=== PATIENT | male | born 1930 | race Caucasian/White ===

== ENCOUNTER 2016-06-14 10:05 | Emergency (ER) | payer OTHER, BC ==
[2016-06-14 10:21] VITALS: BP 150/52; RESP 18; TEMP 95
--- NOTE | 2016-06-14 11:24 | UCPHY ---
H & P Time Seen by Provider: 06/14/16 10:36 Patient Type: Established HPI/ROS: CHIEF COMPLAINT: Finger injury yesterday HISTORY OF PRESENT ILLNESS: stable 86-year-old male was trying to go out the door yesterday with a load of food in his hand. He went to close the door he got his right middle finger caught in the door and crushed. He notes he was pretty heavy door as he is in 1 of the older [place]. It really did not bleed but it became rather ecchymotic. He had slept very poorly last night despite Vicodin 1 p.o. with 1 Tylenol. He notes the Vicodin was rather hold. REVIEW OF SYSTEMS: Constitutional - no fevers or chills Musculoskeletal - no joint or muscle pain. Integument - Mother is break the skin he did not have any bleeding from the tip. He notes the tip was moving more painful than the dorsum at the nail itself. Neurological - no numbness, tingling, or paresthesias. Smoking Status: Former smoker Physical Exam: General Appearance: Alert, no distress. Afebrile. Extremities: There is a moderate amount of ecchymosis present to the tip of the finger at the pad of the digit as well as the middle phalanx of the middle finger on the right. There is a small wound however I do not see any bleeding from it on the radial side of the tip of the finger on the side. There is approximately 50% ecchymosis present underneath the nail but the nail is intact there is no free blood coming out of the nail. Essentially wound is closed. Neurological: NV intact. Skin: Skin is intact. Warm and dry, no rashes. no lymphangitis. . Constitutional: Initial Vital Signs Temperature (C) 35 C L 06/14/16 10:19 Heart Rate 55 L 06/14/16 10:19 Respiratory Rate 18 06/14/16 10:19 Blood Pressure 150/52 H 06/14/16 10:19 O2 Sat (%) 96 06/14/16 10:19 O2 Delivery Mode Room Air Allergies/Adverse Reactions: Idnuagt-Zlg-Vmh Reductase Inhibitor Allergy (Unknown, Verified 03/22/16 14:56) Home Medications: Medication Instructions Recorded Cholecalciferol Vit D3 [Vitamin D3 1,000 mg PO HS 08/02/12 (*)] Aspirin [Aspirin 81mg (*)] 81 mg PO DAILY 09/17/13 [place]-3 Fatty Acids [Fish Oil 1000 1,000 mg PO DAILY 09/17/13 mg (*)] Torsemide 40 mg PO DAILY 03/26/15 DULoxetine [Cymbalta 60 MG (*)] 60 mg PO HS 07/20/15 traZODone [traZODONE 50MG (*)] 50 mg PO HS 07/20/15 Carvedilol [Coreg] 6.25 mg PO BID 11/06/15 Sacubitril/Valsartan 24/26Mg 1 tab PO BID 11/06/15 [Entresto 24 mg/26 mg (RX)] Lorazepam [Ativan] 1 mg PO BID 12/20/15 Melatonin [Melatonin 1 mg] 0.5 mg PO DAILY@18 12/20/15 Acetaminophen [Tylenol ES 500 mg 1,000 mg PO TID PRN #0 tab 12/23/15 (*)] Allopurinol [Allopurinol 100 MG 100 mg PO DAILY #30 tab 12/23/15 (*)] Potassium Cl [Klor-Con 20 meq (*)] 20 meq PO DAILY #0 tab 12/23/15 Spironolactone [Aldactone 25 MG 12.5 mg PO DAILY #30 tab 12/23/15 (*)] Tramadol HCl 03/22/16 Docusate Sodium [Colace 100 MG (*)] 100 mg PO BID #10 cap 06/14/16 Oxycodone HCl 5 mg PO Q6H PRN #10 capsule 06/14/16 Medical Decision Making Procedures: Digital block performed utilizing sterile technique [with 1% lidocaine] without epinephrine. Patient tolerated the procedure well. Nail trephination was successfully completed with [id number] amount of bloody fluid draining. We utilized the thermal cautery for this. Tolerated well. Differential Diagnosis: The differential diagnosis includes but is not limited to: Fracture, Sprain, Strain, Dislocation, Nerve injury Departure - Departure Disposition: Home, Routine, Self-Care Clinical Impression: Fracture of distal phalanx of finger of right hand Subungual hematoma of finger of right hand Qualifiers: Encounter type: initial encounter Qualified Code(s): S60.10XA - Contusion of unspecified finger with damage to nail, initial encounter Condition: Good Instructions: Finger Fracture (ED) Additional Instructions: Elevate the hand So the digit 3 times daily for 3 days Keep the area covered so as to protect as well as get any of the drainage or blood coming from the site of the nail draining. Throughout the Vicodin. Substitute the oxycodone. Referrals: Yanely Kelly G[employer] PROGRAMER [Primary Care Provider] - As per Instructions Prescriptions: Docusate Sodium [Colace 100 MG (*)] 100 mg PO BID #10 cap Oxycodone HCl 5 mg PO Q6H PRN #10 capsule PRN Reason: pain - PQRS PQRS Measurement: 134: Depression screening and followup, PRIME MD-PHQ2 (12 years and older) Over the last 2 weeks, how often have you been bothered by any of the following problems? 1. Feeling down, depressed, or hopeless? 2. Little interest or pleasure in doing things? [Patient answered no to both 1 and 2] [Patient answered yes to at least 1, referred to PCP for further evaluation.] [Not done because] [altered mental status] [patient refused] [critically ill]. 130: Documentation of medications. [Reviewed all patient medications, doses, route and frequency.] [Unable to obtain meds due to] [critical illness] [altered mental status] [ patient did not know]. 226: Do you smoke? [Yes, counseled to stop.] [No.] 47: 65 and older: Advanced care planning. Patient designates surrogate decision maker as [parent] [spouse] [ ]. [Patient refused.] [Patient has advanced directive.] 51: 18 years old and older with diagnosis of COPD, spirometry performance. [Spirometry not performed; equipment not available.] [Patient has no history of COPD] 52: 18 years old and older with COPD and symptoms of COPD or FEV1<60% predicted prescribed a B Agonist. [Spirometry not performed; equipment not available.] [Patient has no history of COPD]
[2016-06-14 13:16] VITALS: PULSE 65; O2SAT 95
== END 2016-06-14 12:40 | disposition home or self-care (01) ==
LOC: CED 10:05
DX: S62.662A Nondisplaced fracture of distal phalanx of right middle finger, initial encounter for closed fracture (principal); S60.10XA Contusion of unspecified finger with damage to nail, initial encounter; W23.0XXA Caught, crushed, jammed, or pinched between moving objects, initial encounter
CPT/HCPCS: 73140; G0463; 11740-PO; 99214-PO

== ENCOUNTER 2016-09-12 12:01 | Observation (INO) | payer OTHER, BC ==
--- NOTE | 2016-09-12 12:32 | CPEKG ---
Heart Rate: 60 RR Interval: 1000 P-R Interval: 218 QRSD Interval: 142 QT Interval: 432 QTC Interval: 432 P [place]: 0 QRS [place]: 232 T [place]: 57 EKG Severity - ABNORMAL ECG - EKG Impression: VENTRICULAR-PACED RHYTHM Electronically Signed By: Bethel Ahumada 13-Sep-2016 11:24:45
--- NOTE | 2016-09-12 12:32 | EDPHY ---
H & P Stated Complaint: nausea, weak, fatigue, x 3 days Time Seen by Provider: 09/12/16 12:10 HPI/ROS: CHIEF COMPLAINT: Weakness HISTORY OF PRESENT ILLNESS: This is an 86-year-old male with history of atrial fibrillation, congestive heart failure, status post AICD implant, coronary artery disease, status post stents in 2012 presenting with complaints of profound weakness for the last week. Some nausea but no vomiting. Patient denies a fever, denies chest pain, has some shortness of breath with exertion but thinks it is just simply how weak he is feeling, denies increasing peripheral edema, denies orthopnea. Reports no changes in his stools, no black or dark colored stools. Patient does state that he is watching a cat who is fed raw chicken and so he has been handling raw chicken for the last several days. His family is concerned that he may have salmonella. On arrival to the emergency department he had a low-grade temperature but had not noticed a fever before. Again no complaints of vomiting or diarrhea. No rash. No recent falls. No fever, chills, chest pain, palpitations, vomiting, diarrhea, urinary complaints, headache, lightheadedness. REVIEW OF SYSTEMS: Aside from elements discussed in the HPI, a comprehensive 10-point review of systems was reviewed and is negative. PAST MEDICAL HISTORY: Atrial fibrillation, myocardial infarction, congestive heart failure, hyperlipidemia, ischemic cardiomyopathy, CABG, AICD/pacemaker. Patient is on Pradaxa. SOCIAL HISTORY: Denies smoking. Lives alone but family is close by. VITAL SIGNS Reviewed by me. GENERAL: Well-developed, well-nourished, seems out of breath with simple movements. HEENT: Atraumatic. Eyes: No icterus, no injection. Mouth: Slightly pale mucous membranes. No erythema or lesions. Neck: supple with no adenopathy. LUNGS: Clear to auscultation bilaterally, no wheezes, rhonchi or rales. CARDIAC: Regular, diastolic and systolic murmurs. ABDOMEN: Soft, nontender, nondistended, bowel sounds normal. BACK: No CVA tenderness. EXTREMITIES: No trauma. Trace pretibial edema. No deformities. NEURO: Alert and oriented, grossly nonfocal. SKIN: Warm and dry, no rash. PSYCHIATRIC: Normal mentation, no agitation. - Personal History Current Tetanus Diphtheria and Acellular Pertussis (TDAP): Yes Tetanus Vaccine Date: within 10 yrs - Medical/Surgical History Hx Asthma: No Hx Chronic Respiratory Disease: No Hx Diabetes: No Hx Cardiac Disease: Yes Hx Renal Disease: Yes Hx Cirrhosis: No Hx Alcoholism: No Hx HIV/AIDS: No Hx Splenectomy or Spleen Trauma: No Other PMH: HX: [place] (1982), OSTEOARTHRITIS, SLEEP APNEA WITH CPAP, AFIB ,BPH, CHF , CAD, HYPERLIPIDEMIA, HTN, ISCHEMIC CARDIOMYOPATHY, RIGHT TOTAL KNEE, CORONARY STENT PLACEMENT (2006) & (2012), CORONARY ARTERY BYPASS GRAFT (1996), AICD/pacer - Social History Smoking Status: Former smoker Constitutional: Initial Vital Signs Temperature (C) 37.7 C 09/12/16 12:14 Heart Rate 58 L 09/12/16 12:14 Respiratory Rate 16 09/12/16 12:14 Blood Pressure 125/56 H 09/12/16 12:14 O2 Sat (%) 97 09/12/16 12:14 O2 Delivery Mode Room Air Allergies/Adverse Reactions: Fyjhvtx-Ohe-Pbm Reductase Inhibitor Allergy (Unknown, Verified 03/22/16 14:56) Home Medications: Medication Instructions Recorded Acetaminophen [Tylenol ES 500 mg 1,000 mg PO DAILY 09/12/16 (*)] Allopurinol [Allopurinol 300 MG 300 mg PO HS 09/12/16 (RX)] Aspirin [Aspirin 81mg (*)] 81 mg PO DAILY 09/12/16 Carvedilol [Coreg (*)] 6.25 mg PO BID 09/12/16 Cholecalciferol Vit D3 [Vitamin D3 1,000 units PO HS 09/12/16 (*)] DULoxetine [Cymbalta 60 MG (*)] 60 mg PO DAILY 09/12/16 Dabigatran Etexilate Mesylate 75 mg PO BID 09/12/16 [Pradaxa] Digoxin [Lanoxin 125 mcg (RX)] 125 mcg PO DAILY 09/12/16 Gabapentin [Neurontin 100 MG (*)] 100 mg PO DAILY 09/12/16 Gabapentin [Neurontin 100 MG (*)] 200 mg PO HS 09/12/16 LORazepam [Ativan (*)] 1 mg PO HS 09/12/16 Melatonin [Melatonin 5 mg] 5 mg PO DAILY@1900 09/12/16 [place]-3 Fatty Acids [Fish Oil 1000 1,000 mg PO DAILY 09/12/16 mg (*)] Sacubitril/Valsartan 24/26Mg 1 ea PO BID 09/12/16 [Entresto 24 mg/26 mg (RX)] Spironolactone [Aldactone 25 MG 12.5 mg PO DAILY 09/12/16 (*)] Torsemide [Demadex] 60 mg PO DAILY10 09/12/16 traZODone [traZODONE 50MG (*)] 50 mg PO HS 09/12/16 Medical Decision Making - Diagnostics EKG Interpretation: 12-LEAD EKG: Please see the full report in [facility]. My interpretation: Ventricularly paced rhythm at a rate of 60. Imaging Results: Xray: [chest x-ray] was obtained. I viewed the images myself on the PACS system. My interpretation of the images is: Cardiomegaly, some fluid overload noted. The radiology interpretation is: Agrees. I discussed the results with the patient. Imaging: I viewed and interpreted images myself ED Course/Re-evaluation: 86-year-old male with complex past medical history including hypertension, ischemic cardiomyopathy, myocardial infarction, bypass, stent placement, AICD and pacemaker placement presents with weakness for several days. Patient appears tired on examination and has a low-grade fever. Evaluation demonstrates electrolytes which are largely a baseline with an elevated creatinine, elevated BNP (slightly up from his baseline) negative troponin. Chest x-ray demonstrates no infiltrate. Patient's urinalysis does not indicate infection although there is some yeast present. EKG is nonischemic. On re-evaluation the patient reports that he still continues to feel quite weak. He does not feel safe at home, he lives alone, and feels unsteady. He reports that his gait unsteadiness is chronic but recently he he is concerned that he may fall. Of note, the patient also was concerned regarding potential salmonella as he has been handling raw chicken frequently. Patient's course discussed with the hospitalist service. Patient will be admitted to the PCU for ongoing serial troponins, further evaluation of his congestive heart failure status, potential echocardiogram, and further monitoring for potential occult infection, fevers, or septicemia. Differential Diagnosis: Differential diagnosis of the patient's weakness was considered including but not limited to electrolyte abnormality, anemia, cardiac ischemia, CVA, spinal cord abnormality, and infectious causes. - Data Points Laboratory Results: Laboratory Results 09/12/16 12:40 09/12/16 12:40 Medications Given: Discontinued Medications Allopurinol (Allopurinol) 300 mg PO HS [facility] Stop: 03/11/17 20:59 Last Admin: 09/12/16 20:10 Dose: 300 mg Aspirin (Aspirin) 81 mg PO DAILY [facility] Stop: 03/12/17 08:59 Last Admin: 09/13/16 11:37 Dose: Not Given Carvedilol (Coreg) 6.25 mg PO BIDMEAL [facility] Stop: 03/11/17 18:59 Last Admin: 09/13/16 11:37 Dose: Not Given Dabigatran (Pradaxa) 75 mg PO BID [facility] Stop: 03/11/17 20:59 Last Admin: 09/13/16 11:37 Dose: Not Given Duloxetine HCl (Cymbalta) 60 mg PO DAILY [facility] Stop: 03/12/17 08:59 Last Admin: 09/13/16 11:37 Dose: Not Given Furosemide (Lasix Injection) 40 mg IVP BID@0900,1500 [facility] Stop: 03/11/17 17:29 Last Admin: 09/13/16 15:09 Dose: Not Given Gabapentin (Neurontin) 100 mg PO DAILY [facility] Stop: 03/12/17 08:59 Last Admin: 09/13/16 11:37 Dose: Not Given Gabapentin (Neurontin) 200 mg PO HS [facility] Stop: 03/11/17 20:59 Last Admin: 09/12/16 20:10 Dose: 200 mg Lorazepam (Ativan) 1 mg PO HS [facility] Stop: 03/11/17 20:59 Last Admin: 09/12/16 20:11 Dose: 1 mg Melatonin (Melatonin) 3 mg PO DAILY@1900 [facility] Stop: 03/11/17 18:59 Last Admin: 09/12/16 19:03 Dose: 3 mg Sacubitril/Valsartan (Entresto 24 Mg/26 Mg) 1 ea PO BID [facility] Stop: 03/11/17 20:59 Last Admin: 09/13/16 11:37 Dose: Not Given Spironolactone (Aldactone) 12.5 mg PO DAILY [facility] Stop: 03/12/17 08:59 Last Admin: 09/13/16 11:38 Dose: Not Given Trazodone HCl (Trazodone) 50 mg PO HS PRN PRN Reason: insomnia Stop: 03/11/17 20:59 Last Admin: 09/12/16 22:24 Dose: 50 mg Departure - Departure Disposition: [facility] Inpatient Acute Clinical Impression: Weakness, rule out cardiac cause Condition: Good
[2016-09-12 12:47] LABS: % IMMATURE GRANULYOCYTES 0.5 % (0.0-1.1); ABSOLUTE IMMATURE GRANULOCYTES 0.06 10^3/uL (0.00-0.10); ADD DIFF? NO; ADD MORPH? NO; ADD SCAN? NO; ATYPICAL LYMPHOCYTE FLAG 10 (0-99); FRAGMENT RBC FLAG 20 (0-99); HEMATOCRIT 31.5 % (40.0-51.0); HEMOGLOBIN 10.6 g/dL (13.7-17.5); LEFT SHIFT FLG 10 (0-99); LIPEMIA HEMOLYSIS FLAG 80 (0-99); MEAN CELL HEMOGLOBIN 34.9 pg (27.9-34.1); MEAN CELL HEMOGLOBIN CONCENTR. 33.7 g/dL (32.4-36.7); MEAN CELL VOLUME 103.6 fL (81.5-99.8); MEAN PLATELET VOLUME 11.8 fL (8.7-11.7); PLATELET CLUMPS FLAG 0 (0-99); PLATELET COUNT 115 10^3/uL (150-400); RED BLOOD CELL COUNT 3.04 10^6/uL (4.40-6.38); RED CELL DISTRIBUTION WIDTH 16.3 % (11.5-15.2)
[2016-09-12 13:06] LABS: CREATININE 1.7 mg/dL (0.7-1.3)
[2016-09-12 13:09] LABS: TOTAL PROTEIN 6.2 g/dL (6.3-8.2)
[2016-09-12 13:12] LABS: ALBUMIN 3.8 g/dL (3.5-5.0); BILIRUBIN,TOTAL 1.5 mg/dL (0.1-1.4); BILIRUBIN-CONJUGATED 0.3 mg/dL (0.0-0.5); BILIRUBIN-UNCONJUGATED 1.2 mg/dL (0.0-1.1); CALCIUM 8.8 mg/dL (8.5-10.4); POTASSIUM 4.3 mEq/L (3.5-5.2)
[2016-09-12 13:19] LABS: TROPONIN I 0.026 ng/mL (0-0.034)
[2016-09-12 13:58] LABS: COLOR YELLOW; LEUKOCYTE ESTERASE,URINE NEGATIVE (NEGATIVE); NITRITE,URINE NEGATIVE (NEGATIVE)
[2016-09-12 14:08] LABS: AMORPHOUS TRACE /hpf (NONE-1+); HYALINE CASTS 15-25 /lpf (0-1); MUCUS TRACE /lpf (NONE-1+); RBC,URINE 0-1 /hpf (0-3); WBC,URINE 0-1 /hpf (0-3); YEAST OCCASIONAL /hpf (NONE SEEN)
--- NOTE | 2016-09-12 14:36 | PDGENHP ---
History and Physical - Chief Complaint weakness, nausea - History of Present Illness 86 yo male with h/o CAD and ischemic cardiomyopathy, atrial fibrillation and CKD presents to the [facility] complaining of weakness and shortness of breath over the past 4 days. He reports his weight is up at least 10 lbs. He doesn't follow his daily weights. He can normally walk 4-6 blocks, but over past few days, thinks he couldn't make it 1/4 of a block. He denies orthopnea or PND. He does have some peripheral edema. No CP. No SOB at rest, but +GARCIA as above. No fevers or chills. He has been taking care of a friend's cat and feeds it raw chicken. His daughter thought maybe he has salmonella, but he denies abdominal pain, vomiting or diarrhea. He also reports a h/o alcoholism and was sober for >20 yrs. Recently, he began drinking again, an occasional beer or yakut coffee. He asks if I consider this okay for his health. He is admitted to the hospital for further evaluation of his weakness and SOB. History Information - Allergies/Home Medication List Allergies/Adverse Reactions: Upwmbub-Myg-Fsv Reductase Inhibitor Allergy (Unknown, Verified 03/22/16 14:56) Home Medications: Acetaminophen [Tylenol ES 500 mg (*)] 1,000 mg PO DAILY 09/12/16 [Last Taken 07/26] Allopurinol [Allopurinol 300 MG (RX)] 300 mg PO HS 09/12/16 [Last Taken 09/11/16 ] Aspirin [Aspirin 81mg (*)] 81 mg PO DAILY 09/12/16 [Last Taken 09/12/16] Carvedilol [Coreg (*)] 6.25 mg PO BID 09/12/16 [Last Taken 09/12/16] Cholecalciferol Vit D3 [Vitamin D3 (*)] 1,000 units PO HS 09/12/16 [Last Taken 09/11/16] DULoxetine [Cymbalta 60 MG (*)] 60 mg PO DAILY 09/12/16 [Last Taken 09/12/16] Dabigatran Etexilate Mesylate [Pradaxa] 75 mg PO BID 09/12/16 [Last Taken ] Digoxin [Lanoxin 125 mcg (RX)] 125 mcg PO DAILY 09/12/16 [Last Taken 09/12/16] Gabapentin [Neurontin 100 MG (*)] 100 mg PO DAILY 09/12/16 [Last Taken 09/12/16] Gabapentin [Neurontin 100 MG (*)] 200 mg PO HS 09/12/16 [Last Taken 09/11/16] LORazepam [Ativan (*)] 1 mg PO HS 09/12/16 [Last Taken 09/11/16] Melatonin [Melatonin 5 mg] 5 mg PO DAILY@1900 09/12/16 [Last Taken 09/11/16] [place]-3 Fatty Acids [Fish Oil 1000 mg (*)] 1,000 mg PO DAILY 09/12/16 [Last Taken 09/12/16] Sacubitril/Valsartan 24/26Mg [Entresto 24 mg/26 mg (RX)] 1 ea PO BID 09/12/16 [ Last Taken 09/12/16] Spironolactone [Aldactone 25 MG (*)] 12.5 mg PO DAILY 09/12/16 [Last Taken 09/12] Torsemide [Demadex] 60 mg PO DAILY10 09/12/16 [Last Taken 09/12/16] traZODone [traZODONE 50MG (*)] 50 mg PO HS 09/12/16 [Last Taken 09/11/16] I have personally reviewed and updated: family history, medical history, social history, surgical history - Past Medical History atrial fibrillation, coronary artery disease, CHF, hypertension, hyperlipidemia Additional medical history: OA, CKD- baseline Cr 1.7, Ischemic cardiomyopathy- EF 30-35% by echo 07/2015, CAD with h/o CABG and multiple stents, chronic anemia , FRANCIS - Surgical History Reports: coronary bypass surgery Additional surgical history: CABG 1996, coronary stents 2006, 2012, Rt TKA - Family History Additional family history: Both parents are - Social History Smoking Status: Former smoker Alcohol Use: Occasionally Drug Use: None (h/o alcoholism, just started drinking etoh again, occ beer or yakut whiskey) Additional social history: Lives independently Review of Systems ROS: 10pt was reviewed & negative except for what was stated in HPI & below Physical Exam Temp Pulse Resp BP Pulse Ox 37.1 C 60 18 126/62 H 94 09/12/16 14:00 09/12/16 14:15 09/12/16 14:00 09/12/16 14:15 09/12/16 14:00 Constitutional: no apparent distress Eyes: PERRL Ears, Nose, Mouth, Throat: moist mucous membranes Cardiovascular: regular rate and rhythym, systolic murmur, JVD Respiratory: no respiratory distress, clear to auscultation, reduced air movement Gastrointestinal: normoactive bowel sounds, soft, non-tender abdomen Skin: warm Musculoskeletal: full muscle strength Neurologic: AAOx3 Psychiatric: interacting appropriately Lab Data & Imaging Review 09/12/16 12:40 09/12/16 12:40 WBC 11.77 10^3/uL (3.80-9.50) H 09/12/16 12:40 RBC 3.04 10^6/uL (4.40-6.38) L 09/12/16 12:40 Hgb 10.6 g/dL (13.7-17.5) L 09/12/16 12:40 Hct 31.5 % (40.0-51.0) L 09/12/16 12:40 MCV 103.6 fL (81.5-99.8) H 09/12/16 12:40 MCH 34.9 pg (27.9-34.1) H 09/12/16 12:40 MCHC 33.7 g/dL (32.4-36.7) 09/12/16 12:40 RDW 16.3 % (11.5-15.2) H 09/12/16 12:40 Plt Count 115 10^3/uL (150-400) L 09/12/16 12:40 MPV 11.8 fL (8.7-11.7) H 09/12/16 12:40 Neut % (Auto) 67.6 % (39.3-74.2) 09/12/16 12:40 Lymph % (Auto) 16.5 % (15.0-45.0) 09/12/16 12:40 [place] % (Auto) 13.5 % (4.5-13.0) H 09/12/16 12:40 Eos % (Auto) 1.6 % (0.6-7.6) 09/12/16 12:40 Baso % (Auto) 0.3 % (0.3-1.7) 09/12/16 12:40 Nucleat RBC Rel Count 0.0 % (0.0-0.2) 09/12/16 12:40 Absolute Neuts (auto) 7.96 10^3/uL (1.70-6.50) H 09/12/16 12:40 Absolute Lymphs (auto) 1.94 10^3/uL (1.00-3.00) 09/12/16 12:40 Absolute Monos (auto) 1.59 10^3/uL (0.30-0.80) H 09/12/16 12:40 Absolute Eos (auto) 0.19 10^3/uL (0.03-0.40) 09/12/16 12:40 Absolute Basos (auto) 0.03 10^3/uL (0.02-0.10) 09/12/16 12:40 Absolute Nucleated RBC 0.00 10^3/uL (0-0.01) 09/12/16 12:40 Immature Gran % 0.5 % (0.0-1.1) 09/12/16 12:40 Immature Gran # 0.06 10^3/uL (0.00-0.10) 09/12/16 12:40 Sodium 138 mEq/L (134-144) 09/12/16 12:40 Potassium 4.3 mEq/L (3.5-5.2) 09/12/16 12:40 Chloride 100 mEq/L (97-110) 09/12/16 12:40 Carbon Dioxide 24 mEq/l (22-31) 09/12/16 12:40 Anion Gap 15 mEq/L (8-16) 09/12/16 12:40 BUN 31 mg/dL (7-23) H 09/12/16 12:40 Creatinine 1.7 mg/dL (0.7-1.3) H 09/12/16 12:40 Estimated GFR 39 09/12/16 12:40 Glucose 110 mg/dL (70-100) H 09/12/16 12:40 Calcium 8.8 mg/dL (8.5-10.4) 09/12/16 12:40 Total Bilirubin 1.5 mg/dL (0.1-1.4) H 09/12/16 12:40 Conjugated Bilirubin 0.3 mg/dL (0.0-0.5) 09/12/16 12:40 Unconjugated Bilirubin 1.2 mg/dL (0.0-1.1) H 09/12/16 12:40 AST 18 IU/L (17-59) 09/12/16 12:40 ALT 29 IU/L (21-72) 09/12/16 12:40 Alkaline Phosphatase 58 IU/L (38-126) 09/12/16 12:40 Troponin I 0.026 ng/mL (0-0.034) 09/12/16 12:40 NT-Pro-B Natriuret Pep 3140 pg/mL (0-450) H 09/12/16 12:40 Total Protein 6.2 g/dL (6.3-8.2) L 09/12/16 12:40 Albumin 3.8 g/dL (3.5-5.0) 09/12/16 12:40 Lipase 77.0 IU/L (23-300) 09/12/16 12:40 Urine Color YELLOW 09/12/16 13:55 Urine Appearance CLEAR 09/12/16 13:55 Urine pH 6.0 (5.0-7.5) 09/12/16 13:55 Ur Specific [place] <= 1.005 (1.002-1.030) 09/12/16 13:55 Urine Protein NEGATIVE (NEGATIVE) 09/12/16 13:55 Urine Ketones NEGATIVE (NEGATIVE) 09/12/16 13:55 Urine Blood NEGATIVE (NEGATIVE) 09/12/16 13:55 Urine Nitrate NEGATIVE (NEGATIVE) 09/12/16 13:55 Urine Bilirubin NEGATIVE (NEGATIVE) 09/12/16 13:55 Urine Urobilinogen 0.2 EU (0.2-1.0) 09/12/16 13:55 Ur Leukocyte Esterase NEGATIVE (NEGATIVE) 09/12/16 13:55 Urine RBC 0-1 /hpf (0-3) 09/12/16 13:55 Urine WBC 0-1 /hpf (0-3) 09/12/16 13:55 Ur Epithelial Cells NONE SEEN /lpf (NONE-1+) 09/12/16 13:55 Amorphous Sediment TRACE /hpf (NONE-1+) 09/12/16 13:55 Hyaline Casts 15-25 /lpf (0-1) H 09/12/16 13:55 Urine Mucus TRACE /lpf (NONE-1+) 09/12/16 13:55 Urine Yeast OCCASIONAL /hpf (NONE SEEN) H 09/12/16 13:55 Urine Glucose NEGATIVE (NEGATIVE) 09/12/16 13:55 Visualized and Interpreted Chest x-ray results: Yes Chest X-Ray results: no infiltrate, other (mild patchy pulmonary edema) Visualized and Interpreted EKG results: Yes EKG additional interpertation: V paced Assessment & Plan Assessment: Weakness and SOB - suspect mild HF exacerbation though he is fairly well compensated without hypoxemia or respiratory distress. His weight is up >10 lbs , with peripheral edema, JVD, mild volume overload on CXR and SOB/GARCIA. He also has h/o valvular heart disease. Doubt salmonella as was mentioned in ED note. Pt has no diarrhea or abdominal symptoms. His recent use of alcohol may be playing a role in his worsening HF symptoms. -admit for diuresis, IV lasix BID, continue spironolactone -monitor I&O's, daily weights -check echo -check TSH -trend troponin Ischemic cardiomyopathy with bi-V AICD - EF 30-35% per 07/2015 echo. BNP ~3K, though baseline is 2-4K in setting of decreased renal clearance. He appears mildly volume overloaded by exam. -diurese as above -consider cardiology consult in am. Pt is followed by Dr. Carrington Valvular heart disease - h/o MR, AR, and TR. -repeat echo as above CAD with h/o CABG, prior stents - stable, no CP. Will trend trop as above. Cont outpt meds. Atrial fibrillation - In V-paced rhythm. Chads-vasc at least 5. -cont coreg for rate control -cont pradaxa for stroke prevention CKD - Cr at baseline. Follow. Anemia - chronic, ?anemia of CKD vs ACD. No e/o active bleeding. Hgb relatively stable. 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 No w/d symptoms. Encouraged abstinence. Full code Dispo - obs
[2016-09-12] MEDS ORDERED: ONDANSETRON 4 MG/2 ML VIAL IVP PRN (16:29)
[2016-09-12] MEDS ORDERED: ACETAMINOPHEN 325 MG TAB PO PRN (16:29)
[2016-09-12] MEDS ORDERED: ONDANSETRON DISINTEGRATING 4 MG TAB PO PRN (16:29)
[2016-09-12] MEDS: FUROSEMIDE 40 MG/4 ML VIAL IVP SCH (17:33)
[2016-09-12] MEDS ORDERED: traZODone 50 MG TAB PO PRN (18:45)
[2016-09-12] MEDS ORDERED: MELATONIN 3 MG TAB PO SCH (19:00)
[2016-09-12 19:06] LABS: TROPONIN I 0.026 ng/mL (0-0.034)
[2016-09-12] MEDS: DABIGATRAN ETEXILATE MESYL 75 MG CAP PO SCH (20:10)
[2016-09-12] MEDS: SACUBITRIL/VALSARTAN 24/26MG 1 EA TAB PO SCH (20:10)
[2016-09-12] MEDS: CARVEDILOL 6.25 MG TAB PO SCH (20:11)
[2016-09-12] MEDS ORDERED: GABAPENTIN 100 MG CAP PO SCH (21:00)
[2016-09-12] MEDS ORDERED: ALLOPURINOL 300 MG TAB PO SCH (21:00)
[2016-09-12] MEDS ORDERED: LORazepam 1 MG TAB PO SCH (21:00)
[2016-09-12] MEDS ORDERED: traZODone 50 MG TAB PO SCH (21:00)
[2016-09-13 04:01] LABS: % IMMATURE GRANULYOCYTES 0.4 % (0.0-1.1); ABSOLUTE IMMATURE GRANULOCYTES 0.04 10^3/uL (0.00-0.10); ADD DIFF? NO; ADD MORPH? NO; ADD SCAN? NO; ATYPICAL LYMPHOCYTE FLAG 0 (0-99); FRAGMENT RBC FLAG 20 (0-99); HEMATOCRIT 28.5 % (40.0-51.0); HEMOGLOBIN 9.6 g/dL (13.7-17.5); LEFT SHIFT FLG 20 (0-99); LIPEMIA HEMOLYSIS FLAG 80 (0-99); MEAN CELL HEMOGLOBIN 35.4 pg (27.9-34.1); MEAN CELL HEMOGLOBIN CONCENTR. 33.7 g/dL (32.4-36.7); MEAN CELL VOLUME 105.2 fL (81.5-99.8); MEAN PLATELET VOLUME 12.5 fL (8.7-11.7); PLATELET CLUMPS FLAG 0 (0-99); PLATELET COUNT 99 10^3/uL (150-400); RED BLOOD CELL COUNT 2.71 10^6/uL (4.40-6.38); RED CELL DISTRIBUTION WIDTH 16.2 % (11.5-15.2)
[2016-09-13 04:19] LABS: ANION GAP 10 mEq/L (8-16); CALCIUM 8.5 mg/dL (8.5-10.4); CARBON DIOXIDE 26 mEq/l (22-31); CHLORIDE 102 mEq/L (97-110); CREATININE 1.7 mg/dL (0.7-1.3); GLOMERULAR FILTRATION RATE 39; GLUCOSE 140 mg/dL (70-100); SODIUM 138 mEq/L (134-144)
[2016-09-13] MEDS ORDERED: GABAPENTIN 100 MG CAP PO SCH (09:00)
[2016-09-13] MEDS ORDERED: ASPIRIN 81 MG CHEWABLE TAB PO SCH (09:00)
[2016-09-13] MEDS ORDERED: FUROSEMIDE 40 MG/4 ML VIAL IVP SCH (09:00)
[2016-09-13] MEDS ORDERED: DULoxetine 60 MG CAP PO SCH (09:00)
[2016-09-13] MEDS ORDERED: SPIRONOLACTONE 25 MG TAB PO SCH (09:00)
[2016-09-13 11:29] VITALS: BP 102/70; PULSE 57; RESP 14; TEMP 98.8; O2SAT 93
[2016-09-13] MEDS: FUROSEMIDE 40 MG/4 ML VIAL IVP SCH ×2 (11:37→15:09)
[2016-09-13] MEDS: SACUBITRIL/VALSARTAN 24/26MG 1 EA TAB PO SCH (11:37)
[2016-09-13] MEDS: CARVEDILOL 6.25 MG TAB PO SCH (11:37)
[2016-09-13] MEDS: DABIGATRAN ETEXILATE MESYL 75 MG CAP PO SCH (11:37)
--- NOTE | 2016-09-13 13:26 | ECHO ---
[id number] + + [address] : : [place] [address] : : [phone] + + Adult Echocardiographic Report + ---+ :Name: TIFFANIE HAQUE TStudy Date: 09/13/2016 10:38 AM : : Hospital Admission Number: [id number] Location: 213: :: 1930 Gender: Male Height: 68 in : :Age: 86 yrs Race: WH Weight: 194 lb : :Reason For Study: Eval LV Fx : : BSA: 2.0 meters2 : :History: Weakness, Hx of Pacemaker, ICM : + ---+ MMode/2D Measurements \T\ Calculations IVSd: 0.61 cm LVIDd: 5.7 cm FS: 22.8 % MV Diam: 3.5 cm LVPWd: 0.95 cm LVIDs: 4.4 cm EDV(Teich): 162.8 ml ESV(Teich): 89.3 ml EF(Teich): 45.1 % Ao root diam: LVOT diam: 1.9 cm LVLd ap4: 7.9 cm SV(MOD-sp4): 3.4 cm LVOT area: EDV(MOD-sp4): 43.0 ml ACS: 1.5 cm 2.8 cm2 93.0 ml LVLs ap4: 7.5 cm ESV(MOD-sp4): 50.0 ml EF(MOD-sp4): 46.2 % Normal Measurement Values: + + :LVIDd (3.5-5.7cm) IVSd (0.6-1.1cm) LVPWd (0.6-1.1cm) Aortic Root (2.0-3.7cm)Left Atrium (1.5-4.0cm): :LV Vol(d) (76-115ml) LV Vol(s) (29-48ml) Ejec Fraction (50-65%)PV Newton (0.6- 1.2m/s) TV Newton (0.4-1.0m/s) : :MV E Newton (0.8-1.0m/s)MV A Newton (0.3-1.0m/s)LVOT Newton (0.7-1.2m/s) Asc Ao Newton ( 0.9-1.8m/s) : + + Doppler Measurements \T\ Calculations MV E max newton: MV V2 mean: Ao V2 max: LV V1 max: 86.4 cm/sec 64.4 cm/sec 168.9 cm/sec 96.7 cm/sec MV mean P.1 mmHgAo max PG: LV V1 max PG: MV V2 VTI: 32.2 cm 11.4 mmHg 3.7 mmHg MV area (1 diam): FARIDEH(V,D): 1.6 cm2 LV V1 mean P.6 cm2 2.0 mmHg LV V1 mean: MVA(VTI): 1.8 cm2 65.1 cm/sec MV Flow area(1diam): LV V1 VTI: 9.6 cm2 20.8 cm MR max newton: MR(RF 1 diam): SV(MV 1 diam): PA V2 max: 443.4 cm/sec 11.6 % 309.8 ml 111.3 cm/sec MR max PG: SI(MV 1 diam): PA max P.7 mmHg 153.6 ml/m2 5.0 mmHg SV(LVOT): 59.0 ml TR max newton: RF(MV,LVOT)(1diam): 321.2 cm/sec 0.81 TR max P.3 mmHg RAP systole: 5.0 mmHg RVSP(TR): 46.3 mmHg Left Ventricle The left ventricle is normal in size. There is normal left ventricular wall thickness. Ejection Fraction = 30 to 35%. There is Doppler evidence for diastolic dysfunction. Left ventricular systolic function is moderate to severely reduced. Anterolateral and apical hypo- to akinesis. Right Ventricle The right ventricle is mildly dilated. There is a pacemaker lead in the right ventricle. The right ventricular systolic function is normal. Atria The Left Atrial Volume is 55 ml/m2. The left atrium is moderate to severely dilated. The right atrium is moderately dilated. Mitral Valve There is mild mitral annular calcification. There is no evidence of mitral valve prolapse. There is no mitral valve stenosis. There is mild to moderate mitral regurgitation. Tricuspid Valve Normal tricuspid valve. Right ventricular systolic pressure is 46mmHg. There is mild to moderate tricuspid regurgitation. Aortic Valve The aortic valve is trileaflet. There is no aortic stenosis. There is no aortic insufficiency. Pulmonic Valve The pulmonic valve is normal in structure and function. There is no pulmonic valvular regurgitation. Great Vessels The aortic root is normal size. Pericardium/Pleural There is no pericardial effusion. Conclusion A complete two-dimensional transthoracic echocardiogram was performed (2D, M-mode, Doppler and color flow Doppler). There is mild to moderate tricuspid regurgitation.The left ventricle is normal in size. Left ventricular systolic function is moderate to severely reduced. Ejection Fraction = 30 to 35%. Anterolateral and apical hypo- to akinesis. There is Doppler evidence for diastolic dysfunction. The right ventricle is mildly dilated. There is a pacemaker lead in the right ventricle. The left atrium is moderate to severely dilated. Normal appearing valvular structures. There is mild to moderate mitral regurgitation. Right ventricular systolic pressure is 46mmHg. The aortic root is normal size. Final Reading Physician: Fernie Smith signed on 09/13/2016 01:24 PM Ordering Physician: Laurie Arellano Performed By: Tristan Patel, CS
--- NOTE | 2016-09-13 14:02 | PDIAF ---
- Diagnosis Diagnosis: ischemic cardiomyopathy Code Status: Full Code - Medication Management Discharge Medications: Medications to Continue on Transfer Acetaminophen [Tylenol ES 500 mg (*)] 1,000 mg PO DAILY 09/12/16 [Last Taken 07/26] Allopurinol [Allopurinol 300 MG (RX)] 300 mg PO HS 09/12/16 [Last Taken 09/11/16 ] Aspirin [Aspirin 81mg (*)] 81 mg PO DAILY 09/12/16 [Last Taken 09/12/16] Carvedilol [Coreg (*)] 6.25 mg PO BID 09/12/16 [Last Taken 09/12/16] Cholecalciferol Vit D3 [Vitamin D3 (*)] 1,000 units PO HS 09/12/16 [Last Taken 09/11/16] DULoxetine [Cymbalta 60 MG (*)] 60 mg PO DAILY 09/12/16 [Last Taken 09/12/16] Dabigatran Etexilate Mesylate [Pradaxa] 75 mg PO BID 09/12/16 [Last Taken ] Digoxin [Lanoxin 125 mcg (RX)] 125 mcg PO DAILY 09/12/16 [Last Taken 09/12/16] Gabapentin [Neurontin 100 MG (*)] 100 mg PO DAILY 09/12/16 [Last Taken 09/12/16] Gabapentin [Neurontin 100 MG (*)] 200 mg PO HS 09/12/16 [Last Taken 09/11/16] LORazepam [Ativan (*)] 1 mg PO HS 09/12/16 [Last Taken 09/11/16] Melatonin [Melatonin 5 mg] 5 mg PO DAILY@1900 09/12/16 [Last Taken 09/11/16] [place]-3 Fatty Acids [Fish Oil 1000 mg (*)] 1,000 mg PO DAILY 09/12/16 [Last Taken 09/12/16] Sacubitril/Valsartan 24/26Mg [Entresto 24 mg/26 mg (RX)] 1 ea PO BID 09/12/16 [ Last Taken 09/12/16] Spironolactone [Aldactone 25 MG (*)] 12.5 mg PO DAILY 09/12/16 [Last Taken 09/12] Torsemide [Demadex] 60 mg PO DAILY10 09/12/16 [Last Taken 09/12/16] traZODone [traZODONE 50MG (*)] 50 mg PO HS 09/12/16 [Last Taken 09/11/16] Discharge Medications: Refer to the Discharge Home Medication list for PRN reason. - Orders Services needed: Home Care, Registered Nurse, Physical Therapy Home Care Face to Face: I certify that this patient was under my care and that I had the required [id number] encounter meeting the encounter requirements on the discharge day. My findings support the fact that the patient is homebound as defined in CMS Chapter 7 Medicare Benefits Manual 30.1.1, The condition of the patient is such that there exists a normal inability to leave home and consequently, leaving home would require a considerable and taxing effort. Diet Recommendation: cardiac -low fat low salt Diet Texture: Regular Texture Diet - Follow Up Care Current Providers and Referrals: Yanely Kelly NP [Primary Care Provider] - As per Instructions Jonathan Suarez MD [Medical Doctor] -
--- NOTE | 2016-09-13 14:39 | GDS ---
[f rep st] DISCHARGE SUMMARY DISCHARGE DIAGNOSES: Include: 1. Coronary artery disease. 2. Ischemic cardiomyopathy. Ejection fraction estimated 35% in the clinic. 3. Atrial fibrillation. 4. Chronic kidney disease. 5. Osteoarthritis. 6. Chronic anemia. 7. Obstructive sleep apnea. HISTORY OF PRESENT ILLNESS: An 86-year-old male who presented to the outside clinic with complaints of weakness. For details of patient's initial presentation, please see the history and physical da pancho 09/12/2016. CONSULTATIVE SERVICES: Include Cardiology. PROCEDURES: On 09/12/2016, patient had a transthoracic echocardiogram that showed ejection fraction approximately 30% to 35%, similar to that seen in the outpatient clinic. HOSPITAL COURSE BY ISSUE: 1. Weakness. The patient underwent a diagnostic workup for possible occult infection, worsening an emia, worsening heart failure, acute OR. Nothing concerning was identified. He received IV diuresi s while he was here, repeat transthoracic echo to verify that his cardiac dysfunction was stable. T he patient was evaluated by Cardiology and felt, based on his examinations in the outpatient setting , the patient was at his baseline. He will be discharged on his home medications to follow with Arun Smart in the next 1-2 weeks. 2. Coronary artery disease. The patient did not have a new event during this hospital stay. Again , will be kept on his cardiac regimen. 3. Cardiomyopathy, ischemic. Patient's BNP was 3140. Again, echo has been reviewed above and has been stable. He will be discharged on his normal medications, including diuretics, for outpatient f ollowup. MEDICATIONS: At the time of disposition: Please reference med rec printed on 09/13/2016. No medic ations were changed upon disposition. FOLLOWUP APPOINTMENTS: Include with Nely Smart in the next 1-2 weeks. PENDING AT THE TIME OF THIS DICTATION: None. /[id number]/MODL
--- NOTE | 2016-09-13 15:29 | PDCARPN ---
Cardiology Progress Note Assessment/Plan: 86-year-old male very well known to me. I have followed him for many years. More recently, he has been seeing Dr. Carrington in our CHF clinic. Has a complex cardiac history consisting of: Coronary Artery Disease- h/o anterior NV in 1979 with subsequent PTCAs; ultimately underwent four-vessel CABG in 1997 with subsequent PCI of the RCA in 2003 and circumflex in 2012 (at that time his LUTZ to LAD graft and SVG to diagonal were shown to be patent; SVGs to an obtuse marginal branch and the distal RCA were both occluded). Ischemic Cardiomyopathy- LVEF chronically 30-35%; s/p previous biventricular pacemaker/ICD implantation; echocardiography performed during this hospital stay was preliminarily reported as showing an LVEF of 40-45%. However, my read is that his LV function is unchanged and that his ejection fraction remains 30- 35% with LAD territory hypokinesis to akinesis. Chronic Systolic CHF- NYHA class III. Chronic Atrial Fibrillation- on systemic anticoagulation. Currently admitted for fatigue and increased shortness of breath in conjunction with a 10 pound weight gain. Feels better today after receiving intravenous diuretics. Appears to be volume compensated. No clear trigger for this event such as ischemic symptoms, elevated troponin, or salt indiscretion. Of note, he has resumed what he reports as modest alcohol intake. Has a prior history of alcohol abuse and resumption of alcohol intake resulted in a similar presentation on at least one occasion. Appears to be stable for discharge at this point. Will leave instructions for the office to have the old infarct to contact him to arrange a followup appointment with myself or Dr. Lema. 09/13/16 15:45 Subjective: Feels well today; no angina or dyspnea. Reviewed/Discussed With: family Objective: Vital Signs (8 Hrs) Temp Pulse Resp BP Pulse Ox 09/13/16 11:27 37.1 C 57 L 14 102/70 93 09/13/16 10:55 67 93 09/13/16 08:00 36.6 C 45 L 19 123/63 H 91 L Intake/Output (24 Hrs) 09/12/16 09/13/16 09/14/16 05:59 05:59 05:59 Intake Total 800 Output Total 150 125 Balance 650 -125 Intake: Oral (ml) 800 Output: Urine (ml) 150 125 Urinal 150 125 Other: Weight 97.9 kg Number of Voids 1 Toilet 2 Result Diagrams: 09/13/16 03:42 09/13/16 03:42 Cardiac Labs: Cardiac Lab Results (72 Hrs) 09/12/16 18:19 Troponin I 0.026 - Physical Exam Constitutional: no apparent distress Eyes: anicteric sclera Ears, Nose, Mouth, Throat: moist mucous membranes Cardiovascular: regular rate and rhythm, no murmurs, no gallops, jugular vein distention Respiratory: clear to auscultate bilat, no crackles Gastrointestinal: normoactive bowel sounds, no tenderness, no masses Skin: no edema Neurologic: AAOx3 Psychiatric: not anxious ICD10 Worksheet Patient Problems: Problems Problem Status Onset Acute dyspnea Acute Acute on chronic renal insufficiency Acute Anxiety Acute Atrial fibrillation Acute Chronic Disease Mgmt/Transitional Care Acute Coronary artery disease Acute Elevated troponin Acute Fatigue Acute Hypokalemia Acute Macrocytic anemia Acute Osteomyelitis of toe of left foot Acute Pacemaker Acute Renal failure Acute Systolic CHF, chronic Acute Unstable angina Acute
== END 2016-09-13 16:45 | disposition home or self-care (01) ==
LOC: CED 12:01 → CEDHOLD 13:50 → F2W 15:44
PROVIDERS: ADMIT Hospitalist; ATTEND Hospitalist
DX: I25.10 Atherosclerotic heart disease of native coronary artery without angina pectoris (principal); I50.22 Chronic systolic (congestive) heart failure; I25.5 Ischemic cardiomyopathy; I48.91 Unspecified atrial fibrillation; I13.0 Hypertensive heart and chronic kidney disease with heart failure and stage 1 through stage 4 chronic kidney disease, or unspecified chronic kidney disease; N18.9 Chronic kidney disease, unspecified; M19.90 Unspecified osteoarthritis, unspecified site; D53.9 Nutritional anemia, unspecified; G47.33 Obstructive sleep apnea (adult) (pediatric); Z95.1 Presence of aortocoronary bypass graft; Z95.810 Presence of automatic (implantable) cardiac defibrillator; Z72.89 Other problems related to lifestyle; Z79.01 Long term (current) use of anticoagulants
CPT/HCPCS: 71020; 93005; 93306; 97161; 97165; G0378; G8978; G8979; G8980; G8987; G8988; G8989; J1940; 80048-PO; 80076-PO; 81003-PO; 81015-PO; 83690-PO; 83880-PO; 84484-PO; 85025-PO

== ENCOUNTER 2017-07-08 15:26 | Emergency (ER) | payer OTHER, BC ==
[2017-07-08 15:40] VITALS: BP 115/56; PULSE 62; RESP 16; TEMP 97.2; O2SAT 93
--- NOTE | 2017-07-08 16:04 | EDPHY ---
H & P Time Seen by Provider: 07/08/17 16:04 HPI/ROS: Chief complaint. Toe injury HPI. 87-year-old male presents with right great toe pain for 3 days. He was [place] the [place] 3 days ago tripped and fell forward. He bent his great toe back. Since then it has been painful and hurts to walk. Slightly swollen. No previous injury. Denies any other injuries. No head injury, neck pain, chest pain, shortness breath, abdominal pain. Treatment so far has been is regular extra strength Tylenol. ROS Constitutional. no fever/chills, no weakness Eyes. no problems with vision ENT. no sore throat, no nasal drainage Cardiovascular. no chest pain Respiratory. no shortness of breath, no cough Abdominal. no abdominal pain, no nausea/vomiting, no diarrhea . no problems urinating MS. Right great toe pain Skin. no rash Lymph. no swollen glands Neuro. no headache, no dizziness, no difficulty walking or with speech Past Medical/Surgical History: Past medical history significant for SD arthritis, sleep apnea CPAP atrial fibrillation, BPH, CHF coronary artery disease, dyslipidemia, hypertension,, CABG, AICD Social History: Single, nonsmoker, no alcohol Smoking Status: Former smoker Physical Exam: General Appearance: Alert well-developed male mild distress vital signs are stable Eyes: Pupils equal and round no pallor or injection. ENT, Mouth: Mucous membranes are moist. Respiratory: There are no retractions, lungs are clear to auscultation. Cardiovascular: Regular rate and rhythm. Gastrointestinal: Abdomen is soft and nontender, no masses, bowel sounds normal. Neurological: Awake and alert, sensory and motor exams grossly normal. Skin: Warm and dry, no rashes. Musculoskeletal: Neck is supple nontender. Extremities right great toe mildly and diffusely swollen. No ecchymosis. No deformity. Tenderness at the MTP joint area. No evidence for gout or infection. Psychiatric: Patient is oriented X 3, there is no agitation. Constitutional: Initial Vital Signs Temperature (C) 36.2 C 07/08/17 15:35 Heart Rate 62 07/08/17 15:35 Respiratory Rate 16 07/08/17 15:35 Blood Pressure 115/56 L 07/08/17 15:35 O2 Sat (%) 93 07/08/17 15:35 O2 Delivery Mode Room Air Allergies/Adverse Reactions: Qcacxxu-Joe-Fck Reductase Inhibitor Allergy (Unknown, Verified 07/08/17 15:42) Home Medications: Medication Instructions Recorded Acetaminophen [Tylenol ES 500 mg 1,000 mg PO DAILY 09/12/16 (*)] Allopurinol [Allopurinol 300 MG 300 mg PO HS 09/12/16 (RX)] Aspirin [Aspirin 81mg (*)] 81 mg PO DAILY 09/12/16 Carvedilol [Coreg (*)] 6.25 mg PO BID 09/12/16 Cholecalciferol Vit D3 [Vitamin D3 1,000 units PO HS 09/12/16 (*)] DULoxetine [Cymbalta 60 MG (*)] 60 mg PO DAILY 09/12/16 Dabigatran Etexilate Mesylate 75 mg PO BID 09/12/16 [Pradaxa] Digoxin [Lanoxin 125 mcg (RX)] 125 mcg PO DAILY 09/12/16 Gabapentin [Neurontin 100 MG (*)] 100 mg PO DAILY 09/12/16 Gabapentin [Neurontin 100 MG (*)] 200 mg PO HS 09/12/16 LORazepam [Ativan (*)] 1 mg PO HS 09/12/16 Melatonin [Melatonin 5 mg] 5 mg PO DAILY@1900 09/12/16 [place]-3 Fatty Acids [Fish Oil 1000 1,000 mg PO DAILY 09/12/16 mg (*)] Sacubitril/Valsartan 24/26Mg 1 ea PO BID 09/12/16 [Entresto 24 mg/26 mg (RX)] Spironolactone [Aldactone 25 MG 12.5 mg PO DAILY 09/12/16 (*)] Torsemide [Demadex] 60 mg PO DAILY10 09/12/16 traZODone [traZODONE 50MG (*)] 50 mg PO HS 09/12/16 Medical Decision Making - Diagnostics Imaging Results: Imaging Impressions Toe X-Ray 07/08/17 15:46 Impression: Fracture dislocation 1st MTP joint. Toe X-Ray 07/08/17 16:58 Impression: No significant interval change. Persistent fracture dislocation at the first MTP joint. Unchanged diffuse demineralization with erosion/destruction of the third metatarsophalangeal joint and in the third and fourth phalanges. Post reduction x-ray really shows continued dislocation at the 1st MTP joint. There is significant DJD at this joint and I suspect that the dislocation is chronic and arthritic Procedures: 0.5% Marcaine without epinephrine infiltrated is digital block to the right great toe Traction counter traction feels that the toe is moving and relocating. Better flexion and extension to the toe afterwards ED Course/Re-evaluation: I consulted discussed case with Dr. Sheridan, orthopedics. They will see the patient in follow-up. After review of the x-rays in further discussion with Dr. Sheridan they recommend an orthotic boot to be placed. They would like to see the patient in the office on Tuesday and have given the patient an appointment time. Orthotic boot is placed. Post application shows good anatomic position and distal motor vascular sensitivity to be intact Differential Diagnosis: It appears that there is significant degeneration an arthritic change in the toe. There is a fracture. The dislocation is unable to be reduced and I feel it is likely chronic. The plan will be symptomatic care with postop shoe and orthopedic referral Departure - Departure Disposition: Home, Routine, Self-Care Clinical Impression: Fracture, dislocation great toe Condition: Good Instructions: Toe Fracture (ED) Additional Instructions: Keep foot elevated as much as possible next 1-2 days. wear boot for comfort and support. Tylenol 1000 mg every 6 hr for discomfort. Return for worsening symptoms. Follow up with Dr. Sheridan as we discussed follow-up Tuesday at 1:[address] Sheridan in [place] office Referrals: Yanely Kelly NP [Primary Care Provider] - As per Instructions Ady Sheridan MD [Medical Doctor] - 2-3 days without fail
[2017-07-08] MEDS ORDERED: ACETAMINOPHEN 500 MG TAB PO ONE (17:46)
== END 2017-07-08 18:29 | disposition home or self-care (01) ==
LOC: CED 15:26
PROC: 0SSPXZZ Reposition Right Toe Phalangeal Joint, External Approach (ICD-10-PCS; principal; 2017-07-08)
DX: S92.311A Displaced fracture of first metatarsal bone, right foot, initial encounter for closed fracture (principal); S93.121A Dislocation of metatarsophalangeal joint of right great toe, initial encounter; I11.0 Hypertensive heart disease with heart failure; I50.9 Heart failure, unspecified; I25.810 Atherosclerosis of coronary artery bypass graft(s) without angina pectoris; Z87.891 Personal history of nicotine dependence; Z79.82 Long term (current) use of aspirin; W01.0XXA Fall on same level from slipping, tripping and stumbling without subsequent striking against object, initial encounter
CPT/HCPCS: 28660; 73660; 99283; L4386

== ENCOUNTER 2017-07-31 09:36 | Emergency (ER) | payer OTHER, BC ==
--- NOTE | 2017-07-31 10:14 | EDPHY ---
H & P Time Seen by Provider: 07/31/17 09:38 HPI/ROS: 87-year-old male presents requesting to be disimpacted. No nausea vomiting diarrhea. No fevers or chills no abdominal pain Review of systems As per HPI General no fever no chills no weakness HEENT no eye pain no eye discharge. No eye redness, no sore throat Respiratory no cough, no shortness of breath Cardiac no chest pain, no peripheral edema GI no abdominal pain, no diarrhea, positive constipation, no nausea, no vomiting no flank pain, no hematuria, no dysuria Musculoskeletal no myalgias, no joint pain Heme no easy bruising, no easy bleeding Endo no polyuria, no polydipsia Skin no rashes, no pruritus Neuro no syncope, no dizziness, no headaches Past Medical/Surgical History: Atrial fibrillation Congestive heart failure Cardiomyopathy Gout Social History: Denies alcohol or drug use Smoking Status: Former smoker Physical Exam: 87-year-old male alert and oriented, mild distress secondary to constipation, afebrile Alert and oriented in no acute distress nontoxic appearance, afebrile Atraumatic normocephalic Neck no JVD Lungs clear to auscultation, no respiratory distress Heart regular rate and rhythm Rectal Large amount of hard stool in rectal vault, removed manually primarily brown stool however some trauma with manual disimpaction Extremities no cyanosis clubbing edema Constitutional: Initial Vital Signs Temperature (C) 36.5 C 07/31/17 09:42 Heart Rate 60 07/31/17 09:42 Respiratory Rate 20 07/31/17 09:42 Blood Pressure 138/69 H 07/31/17 09:42 O2 Sat (%) 96 07/31/17 09:42 O2 Delivery Mode Room Air Allergies/Adverse Reactions: [id number]-[id number] Reductase Inhibitor Allergy (Unknown, Verified 07/31/17 09:40) Home Medications: Medication Instructions Recorded Acetaminophen [Tylenol ES 500 mg 1,000 mg PO DAILY 09/12/16 (*)] Allopurinol [Allopurinol 300 MG 300 mg PO HS 09/12/16 (RX)] Aspirin [Aspirin 81mg (*)] 81 mg PO DAILY 09/12/16 Carvedilol [Coreg (*)] 6.25 mg PO BID 09/12/16 Cholecalciferol Vit D3 [Vitamin D3 1,000 units PO HS 09/12/16 (*)] DULoxetine [Cymbalta 60 MG (*)] 60 mg PO DAILY 09/12/16 Dabigatran Etexilate Mesylate 75 mg PO BID 09/12/16 [Pradaxa] Digoxin [Lanoxin 125 mcg (RX)] 125 mcg PO DAILY 09/12/16 Gabapentin [Neurontin 100 MG (*)] 100 mg PO DAILY 09/12/16 Gabapentin [Neurontin 100 MG (*)] 200 mg PO HS 09/12/16 LORazepam [Ativan (*)] 1 mg PO HS 09/12/16 Melatonin [Melatonin 5 mg] 5 mg PO DAILY@1900 09/12/16 [place]-3 Fatty Acids [Fish Oil 1000 1,000 mg PO DAILY 09/12/16 mg (*)] Sacubitril/Valsartan 24/26Mg 1 ea PO BID 09/12/16 [Entresto 24 mg/26 mg (RX)] Spironolactone [Aldactone 25 MG 12.5 mg PO DAILY 09/12/16 (*)] Torsemide [Demadex] 60 mg PO DAILY10 09/12/16 traZODone [traZODONE 50MG (*)] 50 mg PO HS 09/12/16 Medical Decision Making ED Course/Re-evaluation: Patient here requesting disimpaction. No other complaints Patient disimpacted and then able to have a bowel movement of his own. Impression Constipation, fecal impaction Plan DC home Encourage stool softener daily, increase fluids, increase fiber in diet. Follow up with primary care physician Return as needed Differential Diagnosis: Differential diagnosis considered but not limited to: Constipation, obstipation, slow transit constipation, fecal impaction Departure - Departure Disposition: Home, Routine, Self-Care Clinical Impression: Fecal impaction in rectum Condition: Good Instructions: Constipation (ED), Fecal Impaction (ED) Additional Instructions: Please take a stool softener daily, drink plenty of fluids and eat fiber. Referrals: Yanely Kelly NP [Primary Care Provider] - As per Instructions
[2017-07-31 10:55] VITALS: BP 135/60
== END 2017-07-31 10:54 | disposition home or self-care (01) ==
LOC: CED 09:36
DX: K56.41 Fecal impaction (principal); I50.9 Heart failure, unspecified; Z79.82 Long term (current) use of aspirin; Z87.891 Personal history of nicotine dependence

== ENCOUNTER → 2017-08-29 | Outpatient (CLI) | payer OTHER, BC | LOC: BHCLAF 09:15 | PROVIDERS: ATTEND Internal Medicine | DX: I25.10 Atherosclerotic heart disease of native coronary artery without angina pectoris (principal); I50.9 Heart failure, unspecified | CPT/HCPCS: 93306-PO ==

== ENCOUNTER → 2017-12-07 | Outpatient (CLI) | payer OTHER, BC ==
--- NOTE | 2017-12-07 16:41 | ECHO ---
[email or web address] [address] [address] Main: [phone] Fax: Transthoracic Echocardiogram Name: TIFFANIE HAQUE MR#: [id number] Study Date: 12/07/2017 Study Time: 02:04 PM Date of : 1930 Age: 87 year(s) Height: 172.7 cm (68 in.) Weight: 86.18 kg (190 lb.) BSA: 2 m2 Gender: Male Examination: Echo Indication: Atrial Fibrillation, chf, Coronary artery disease Image Quality: Adequate Contrast: Requested by: Luis Carrington BP: / Heart Rate: Rhythm: Indication: Atrial Fibrillation, chf, Coronary artery disease Procedure Staff Environmental Coordinator: Dagmar Freed [facility] Reading Physician: Jonathan Suarez MD Requesting Provider: Conclusions: Mildly dilated left ventricle. EF is 43 %. Basal to mid inferoseptal, basal to mid inferior and basal to mid inferiorlateral hypokinesis. Abnormal septal motion secondary to CAD vs ICD. Moderately dilated right ventricle. Moderately reduced RV function. There is an ICD lead noted in the right ventricle. The left atrium is severely dilated. The right atrium is severely dilated. There is moderate thickening of the mitral valve leaflets. Moderate mitral valve regurgitation is present. Mild aortic cusp calcification is noted. Mild aortic valve regurgitation is present. Severe tricuspid regurgitation is present. Right ventricular systolic pressure measures 61mmHg. No pericardial effusion. Compared to 08/29/2017, LV function has improved slightly (previously 35%) and PA systolic pressure has increased (previoulsy 48 mmHg. Measurements: Chambers Valvular Assessment AV/MV Valvular Assessment TV/PV Normal Normal Normal Name Value Range Name Value Range Name Value Range Ao Audrey (2D): 3.4 cm (1.4 cm-2.6 AV Vmax: 1.49 m/s (1 m/s-1.7 TR Vmax: 3.56 mm/s ( - ) cm) m/s) TR PGmax: 51 mmHg ( - ) IVSd (2D): 0.8 cm (0.6 cm-1.1 AV maxP mmHg ( - ) syst. PAP: 61 mmHg ( - ) cm) AR (PHT): 560 ms ( - ) PV Vmax: 0.94 m/s (0.6 m/s-0.9 LVDd (2D): 5.5 cm (4.2 cm-5.9 MV E Vmax: 0.81 m/s ( - ) m/s) cm) MV A Vmax: 0.25 m/s ( - ) PV PGmax: 4 mmHg ( - ) Patient: TIFFANIE HAQUE Study Date: 12/07/2017 Page 1 of 3 02:04 PM LVDs (2D): 4.8 cm (2.1 cm-4 MV E/A: 3.24 ( - ) cm) MV meanP mmHg ( - ) LVPWd (2D): 1.0 cm (0.6 cm-1 MVA (Vmax): 4.8 m/s ( - ) cm) LVOTd 2.0 cm 2.0 cm mm LVEF (BP): 43 % (>=55 %) RVDd(2D): 4.7 cm (1.9 cm-3.8 cmmm) Continued Measurements: Chambers Valvular Assessment AV/MV Valvular Assessment TV/PV Name Value Name Value Name Value LADs: 5.5 cm MV Annulus: 3.3 cm CVP (est.): 10 mmHg LADs Lon.8 cm MV DecTime: 253 m/s LA Area: 29.0 cm2 MV E' Septal: 0.10 m/s LA Volume: 100 ml MV E/E' Septal: 8.10 LA Volume Index: 50.0 ml/m2 MV E/E' Lateral: 6.00 TAPSE: 1.1 cm MV VTI: 11.50 cm RA Area: 36.4 cm2 MR Vena Contracta: 0.6 cm MR ERO: 0.470 cm2 MR PISA radius: 9 mm MR Reg. Volume: 69 ml MR Reg. Fraction: 70 % AR Vmax: 3.61 cm/s Additional Vessels Name Value Ao Ascendin.8 cm Findings: Left Ventricle: Mildly dilated left ventricle. No LV hypertrophy. Mildly reduced systolic LV function. EF is 43 %. Basal to mid inferoseptal, basal to mid inferior and basal to mid inferiorlateral hypokinesis. Abnormal septal motion secondary to CAD vs ICD. Unable to assess diastolic dysfunction. Right Ventricle: Moderately dilated right ventricle. Moderately reduced RV function. There is an ICD lead noted in the right ventricle. Left Atrium: The left atrium is severely dilated. Right Atrium: The right atrium is severely dilated. There is an ICD lead noted in the right atrium. Mitral Valve: There is moderate thickening of the mitral valve leaflets. Moderate mitral valve regurgitation is present. No mitral stenosis is present. Aortic Valve: The aortic valve is tri-leaflet. Mild aortic cusp calcification is noted. Mild aortic valve regurgitation is present. No aortic valve stenosis is present. Tricuspid Valve: The tricuspid valve leaflets do not seem to coapt due to RV dilatation. Severe tricuspid regurgitation is present. Right ventricular systolic pressure measures 61mmHg. The pulmonary artery pressure is moderately increased. Pulmonic Valve: Pulmonary valve not well visualized. Trivial pulmonic valve regurgitation. Aorta: Normal size aortic root measuring 3.4 cm. Normal size ascending aorta measuring 2.8 cm. IVC: The IVC is dilated. Pericardium: Patient: TIFFANIE HAQUE Study Date: 12/07/2017 Page 2 of 3 02:04 PM No pericardial effusion. There is a pleural effusion present. (No Signature Object) Patient: TIFFANIE HAQUE Study Date: 12/07/2017 Page 3 of 3 02:04 PM [id number]
== END ==
LOC: FCATH 13:37
PROVIDERS: ATTEND Internal Medicine Cardiovascular Disease
DX: I50.23 Acute on chronic systolic (congestive) heart failure (principal); I48.91 Unspecified atrial fibrillation; I25.10 Atherosclerotic heart disease of native coronary artery without angina pectoris
CPT/HCPCS: 36415-PO

== ENCOUNTER → 2017-12-23 | Outpatient (CLI) | payer OTHER, BC | LOC: CIMAGING 07:27 | PROVIDERS: ATTEND Internal Medicine Cardiovascular Disease | DX: K74.60 Unspecified cirrhosis of liver (principal); K82.9 Disease of gallbladder, unspecified; K86.9 Disease of pancreas, unspecified; R18.8 Other ascites | CPT/HCPCS: 76700-PO ==